=== PATIENT | female | born 1990 | race Caucasian/White ===

== ENCOUNTER 2022-02-28 11:16 | Emergency (ER) | payer OTHER ==
[~2022-02-28] VITALS: Ht 172.7 cm; Wt 104.3 kg
[2022-02-28] MEDS ORDERED: ASPIRIN 325 MG TABLET PO ONE (11:30)
[2022-02-28] MEDS ORDERED: ASPIRIN 325 MG TABLET ONE (11:36)
[2022-02-28] MEDS ORDERED: LORAZEPAM 0.5 MG TABLET PO ONE (11:45)
[2022-02-28] MEDS ORDERED: LORAZEPAM 1 MG TABLET ONE (11:50)
--- NOTE | 2022-02-28 11:54 | NUR ---
PT IS IN ROOM #2A. DR TAPIA EVALUATED THE PT.
[2022-02-28 11:59] LABS: HEMATOCRIT 31.9 % (31.2-41.9); MEAN CORPUSCULAR HEMOGLOBIN 23.6 uug (24.7-32.8); MEAN CORPUSCULAR VOLUME 74.5 fL (75.5-95.3); PLATELET COUNT (AUTO) 449 K/uL (179-408)
[2022-02-28 12:15] LABS: CARBON DIOXIDE 26 mmol/L (21-32); CHLORIDE 107 mmol/L (98-107); CREATININE 0.5 mg/dL (0.6-1.3); GLUCOSE 101 mg/dL (74-106); POTASSIUM 3.9 mmol/L (3.5-5.1); UREA NITROGEN, BLOOD 7 mg/dL (7-18)
--- NOTE | 2022-02-28 12:47 | NUR ---
PT WAS D/C'd TO HOME. D/C INSTRUCTIONS GIVEN TO THE PT BY DR TAPIA. PT DENIES PAIN, NO SOB, NO N/V, NO DIZZINESS. GAIT IS STABLE.
[2022-02-28 12:48] VITALS: BP 132/75
== END 2022-02-28 13:13 | disposition home or self-care (01) ==
LOC: ER 11:16
DX: R07.9 Chest pain, unspecified (principal); R00.2 Palpitations; F41.9 Anxiety disorder, unspecified; Z91.041 Radiographic dye allergy status
CPT/HCPCS: 36415; 71045; 84484; 85025; 93005; A4663